=== PATIENT | female | born 1935 | race Caucasian/White ===

== ENCOUNTER 2023-12-26 12:30 | Outpatient (RCR) | payer MEDICARE, OTHER, SELFPAY ==
--- NOTE | 2023-10-19 16:39 | PTOPEVAL1 ---
Assessment and note entered by Le Smith, PT Evaluation Information Assessment Status Evaluation Diagnosis pain in left shoulder, pain in right shoulder abnormal posture Subjective Information Report has been deteriorating the last 6 months to a year. States back was hurting, Dr. Cedillo asked her when she fell but she hadn't fallen. Had multiple fractures but they healed on their own. Was painful for a while but it healed and she recovered. Never completely recovered she felt but is still very active. Pt reports on her own started to use her current cane. Doesn't use it in home, has been using it 6 months. In June was trying to scoot under her electric fence and got shocked and knocked flat . Reports could not get up, was on her back outside through the day and the night. Started pulling herself with her heels toward the house. After this her shoulders and arms hurt. Didn't hurt for about a week then started hurting. 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 Had significant difficulty getting dressed today . Traumatic event with large dog biting her left hand, swing her around wrenched her shoulder in 2019 Went to [place] and reattached her left pinky finger Reported Pain Level Additional Pain Score Comments Reports currently no pain with shoulders with reaching but is unable to use her arms. She reports multiple times has no pain, then later responds she has pain with activity, then states again has no pain. Assessment PT Clinical Summary Pt presents with bilat shoulder pain and stiffness . She is a poor historian and demo's poor recall by repeating comments and concerns related and unrelated to current diagnosis. She demo's severe scoliosis which effect scapular position as well as severely reduced AROM bilat shoulders. Difficulty with evaluation secondary to difficulty keeping patient on task, however pt was provided education on initial HEP, how therapy can benefit her, and plan of care. Thus patient will benefit from physical therapy to address deficits and
--- NOTE | 2023-10-19 16:40 | OPREHPOC ---
Outpatient Therapy Plan of Care This is a Multidisciplinary Plan of Care that may contain components documented by all disciplines (PT, OT, and ST.) PT Problem 1 PT Problem #1 Knowledge Deficit PT Goal 1 Goal Pt will be independent in HEP Pt will verbalize understanding of diagnosis and prognosis Target Visit 4 PT Problem 2 PT Problem #2 Impaired Range of Motion PT Goal 1 Goal Pt will demonstrate AROM of BUEs flexion to 90 degrees Target Visit 8 PT Goal 2 Goal Pt will demo AROM BUE abduction to 90 degrees Target Visit 8 PT Problem 3 PT Problem #3 Impaired Functional ADLs PT Goal 1 Goal Pt will demo ability to don her jacket without assist with minimal difficulty Target Visit 8
[2023-11-17 13:30] VITALS: BP_SYST 100; BP_SYST 90
--- NOTE | 2023-11-17 14:53 | PTOPPROG ---
Assessment and note entered by Le Smith, PT Assessment Status Progress Diagnosis pain in left shoulder, pain in right shoulder, abnormal posture, weakness, stiffness bilat shoulders Subjective Information Reports had a miserable day yesterday. Didn't sleep well, didn't do her exercises. States went to the dentist yesterday and her shoulders bothered her significantly. Reports she didn't take any over the counter medication. States it took her 30 minutes more to get dressed. Assessment PT Clinical Summary Pt requires consistent cueing during activities, repetitive instructions, encouragement to refocus to task at hand during therapy session. She does show improvement in active ROM but demo's significant differences in active and passive ranges with capsular end-feels. Pt will benefit from therapy to improve deficits and educate on modifications activities to allow greater ease of independence. Plan of Care Interventions Hot Pack/Cold Pack,Manual Therapy,Neuro Re- education,Therapeutic Activities,Therapeutic Exercise PT Services Indicated Yes Treatment Frequency and 2x weekly x 10 visits Duration These treatments will address the objective and functional deficits as defined above. The patient will be advanced safely and appropriately in order for the patient to progress towards his/her prior level of function. Additional exercises will be introduced and as well as a comprehensive home exercise program upon discharge, if needed, ?to ensure carryover of functional gains achieved in the clinic. This treatment plan has been reviewed and agreement upon by the patient.
--- NOTE | 2023-12-09 15:28 | PCPTNOTE ---
Department called and cancelled pt appointment on 12/08/23 due to staffing shortage. Pt POC will resume upon next visit.
[2023-12-26 12:30] VITALS: BP_SYST 100; BP_SYST 90
--- NOTE | 2023-12-26 14:41 | PTOPDC ---
Assessment and note entered by Le Smith, PT Assessment Status Discharge Diagnosis pain in left shoulder, pain in right shoulder Subjective Information Pt reports she didn't do her exercises because of her back hurting on Tuesday. Tuesday didn't do her exercises but reports she doesn't have a reason for this. Was able to get dressed in 30 minutes, but didn't have a coat today. Has reported previously needing to get different clothes that are easier but hasn 't yet. Pt is now able to reach the light switch at home. Reports her left arm is giving her more trouble than the right, can't straighten her elbow while lifting arm up. But reports feel like each shoulder can do one thing different than the other . Greatest complaint today was her back this . On Tuesday was very painful but took over the counter pain medication and felt better then next day. Pt reports she cannot pull her pants up over her buttocks, and cannot tuck her shirt in (refer to objective section) Reported Pain Level Pain Score 0: Self Report Assessment PT Clinical Summary Pt has attended therapy consistently for bilateral shoulder pain and stiffness [place]. She has verbalized in multiple sessions her dislike of therapy, has also reported many times she can't do something, has difficulty focusing on task at hand versus on her issues, difficulty with bodily awareness, difficulty with retaining instructions during sessions as well as between sessions, is noted to ask the same question multiple times as well through sessions and poor problem solving ability. Second round of therapy focused heavily on manual stretching of BUEs and gravity eliminated positions with scapular stability. Pt reevaluation cont to show lack of significant progress through patient does report less pain in her shoulders while sleeping, greater ease of reaching her light switch, and greater ease of dressing though she cont to state she can 't pull up her clothes or tuck in her shirt. She has met none of her therapy goals, objective measures show minimal improvement, an
== END 2023-12-26 15:32 | disposition home or self-care (01) ==
LOC: ANHHIPT 12:30
PROVIDERS: PCP Physician Assistant Medical; Visit Provider Nurse Practitioner Family
DX: M25.511 Pain in right shoulder (principal); M25.512 Pain in left shoulder
CPT/HCPCS: 97014; 97110; 97112; 97140; 97530; 97750; G0283

== ENCOUNTER 2025-08-26 13:15 | Outpatient (RCR) | payer MEDICARE, OTHER, SELFPAY ==
--- NOTE | 2025-07-01 13:56 | PTOPEVAL1 ---
Assessment and note entered by Le Smith, PT Evaluation Information Assessment Status Evaluation Diagnosis Unsteadiness on feet ICD-10 Condition Codes (PT) Difficulty Walking R26.2,Abnormalities of gait and mobility R26.9 Subjective Information Pt report has difficulty with balance and walking. Notes she would not try to walk on rough surfaces . States has to take it slow and carefully. Cannot do steps without railing. doesn't have any any pain, but feels like might crumble down. Is able to get in and out of her car pretty easily , but new cars with the railing she isn't able to, especially when they are really low. Thinks will have to use a walker soon. Denies dizziness, just instability Reported Pain Level Pain Score 0: Self Report Assessment PT Clinical Summary Pt presents with complaints of balance deficit. Reports no dizziness, just feels like she will loose her balance and fall. Pt demonstrates weakness in BLE ankles, knees, and hips, poor posture with kyphotic curvature leading to forward center of gravity. Pt will benefit from physical therapy in order to improve LE stability and decrease fall risk Plan of Care Interventions Gait Training,Neuro Re-education,Patient/Caregiver Education,Therapeutic Activities,Therapeutic Exercise,Self-Care/Home Management PT Services Indicated Yes Treatment Frequency and 2x weekly x 20 visits Duration These treatments will address the objective and functional deficits as defined above. The patient will be advanced safely and appropriately in order for the patient to progress towards his/her prior level of function. Additional exercises will be introduced and as well as a comprehensive home exercise program upon discharge, if needed, ?to ensure carryover of functional gains achieved in the clinic. This treatment plan has been reviewed and agreement upon by the patient.
--- NOTE | 2025-07-01 13:56 | OPREHPOC ---
Outpatient Therapy Plan of Care This is a Multidisciplinary Plan of Care that may contain components documented by all disciplines (PT, OT, and ST.) PT Goal 1 Goal / Goal Update Pt will be independent in HEP Pt will verbalize understanding of diagnosis and prognosis Target Visit 10 PT Problem 2 PT Problem #2 Impaired Balance PT Goal 1 Goal / Goal Update Pt will demonstrate improved Tinetti scores by 5 points to reduce fall risk Target Visit 10 PT Goal 2 Goal / Goal Update Pt will demonstrate Tinetti score of 20 or greater Target Visit 20 PT Problem 3 PT Problem #3 Impaired Strength PT Goal 1 Goal / Goal Update Pt will show strength of 4/5 or greater in all tested planes BLEs to improve stability Target Visit 20
--- NOTE | 2025-08-01 14:47 | PTOPPROG ---
Assessment and note entered by Guillaume Lyon, PT Evaluation Information Assessment Status Progress Diagnosis Unsteadiness on feet ICD-10 Condition Codes (PT) Difficulty Walking R26.2,Abnormalities of gait and mobility R26.9 Subjective Information Reports that to this point in therapy she has not felt a significant amount of improvement in her strength and balance. She feel that a lot of her issues are surrounded by her back posture and issues at this point. She has history of a spinal fracture which kind of started all of this. Reports that to this point she would like a little work on her back if she could. She does however have a lot of trouble laying on her back though. She has to sleep on her side when she is on the bed. Reports that she has had a lot of accidents that have contributed to issues over the years. Would like to continue therapy. Assessment PT Clinical Summary Patient very skeptical about her own personal progress with therapy. She has shown improvement across nearly all aspects of functional measures at this time. She will continue to benefit form skilled therapy to address mobility and balance with emphasis on lumbar pain relief as tolerated. This will likely be difficult as she has minimal tolerance to supine actiivty. Plan of Care Interventions Gait Training,Neuro Re-education,Patient/Caregiver Education,Therapeutic Activities,Therapeutic Exercise,Self-Care/Home Management PT Services Indicated Yes Treatment Frequency and 2x/week for 10 visits Duration These treatments will address the objective and functional deficits as defined above. The patient will be advanced safely and appropriately in order for the patient to progress towards his/her prior level of function. Additional exercises will be introduced and as well as a comprehensive home exercise program upon discharge, if needed, ?to ensure carryover of functional gains achieved in the clinic. This treatment plan has been reviewed and agreement upon by the patient.
--- NOTE | 2025-08-07 11:34 | PCPTNOTE ---
Patient did not show up for scheduled appointment this date.
--- NOTE | 2025-08-19 11:45 | PCPTNOTE ---
Addendum entered by Le Smith, PT 08/19/25 13:01: Was not 45 minutes prior, cancelled 90 minutes prior to appt Original Note: Patient called & cancelled scheduled appointment this date due to illness. She called 45 minutes prior to appt.
--- NOTE | 2025-08-21 13:15 | PCPTNOTE ---
Patient called & cancelled scheduled appointment this date with no reason given.
--- NOTE | 2025-09-02 12:06 | PTOPDC ---
Assessment and note entered by Le Smith, PT Evaluation Information Assessment Status Discharge Diagnosis Unsteadiness on feet ICD-10 Condition Codes (PT) Difficulty Walking R26.2,Abnormalities of gait and mobility R26.9 Subjective Information Pt states she doesn't feel like therapy is doing her any good. States has work to do outside. States her exercises are making her sore. Reports did some of her exercises but didn't want to go out and buy a play ball to not use it. States will not do her exercises that require her to lay on her back because of the mario horse she had with trying to get off the mat. States exercises make her stomach sore. states she did go get her new shoes Assessment PT Clinical Summary Pt has attended 14 therapy sessions and has just recently begun performing her home exercises and purchased appropriate shoes as directed. Today she verbalizes being unwilling to do certain activities in therapy, that therapy is making her sore, and that she thinks it is not working. She also requested to continue her last few visits in this plan of care. Pt has been resistant to education in the past as well, as well as requiring frequent and near constant assist with appropriate application of exercises though the exercises have been performed many times previously. Pt is also highly focused on what she is unable to do, and her fear of falling preventing her from participating fully at times. Increased time spent today educating patient if she wants to improve, she has to make changes to her current lifestyle and situation. Will continue remainder of POC and assess pt's motivation to participate for improvement of her function. The day after her reevaluation, pt called and asked to be discharged from therapy. Plan of Care PT Services Indicated no
== END 2025-09-02 13:28 | disposition home or self-care (01) ==
LOC: ANHHIPT 13:15
PROVIDERS: PCP Physician Assistant Medical; Visit Provider Physician Assistant Medical
DX: R26.81 Unsteadiness on feet (principal)
CPT/HCPCS: 97110; 97112; 97116; 97162; 97530; 97750